=== PATIENT | female | born 1995 | race Caucasian/White ===

== ENCOUNTER 2016-09-26 16:35 | Emergency (ER) | payer BC, OTHER ==
[~2016-09-26] VITALS: Ht 167.6 cm; Wt 71.4 kg
[~2016-09-26 16:35] MED LIST: ETON1IMP2 IM; SNG10 PO
[2016-09-26 16:36] VITALS: TEMP 36.7; Ht 167.6 cm; Wt 71.4 kg
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
[2016-09-26] MEDS ORDERED: HYDROCODONE/ACETAMOPHEN 5/325MG TAB PO STA (16:50)
[2016-09-26] MEDS ORDERED: MONT1TAB3 PO (17:11)
--- NOTE | 2016-09-26 17:38 | DIAGNOSTIC IMAGING REPORT ---
RIGHT ELBOW MIN 3 VIEWS ROUTINE CLINICAL HISTORY: Right elbow pain status post trauma COMPARISON: None. DISCUSSION: The fat pads are not displaced. No fractures or dislocations are visualized. IMPRESSION: No fractures or dislocations identified. Electronically signed by: Andi Moore M.D. 09/26/2016 5:37 PM Dictated Date/Time: 09/26/2016 5:37 PM
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
--- NOTE | 2016-09-26 17:41 | DIAGNOSTIC IMAGING REPORT ---
LEFT KNEE 1 OR 2 VIEWS ROUTINE CLINICAL HISTORY: Left knee pain status post trauma COMPARISON: None. DISCUSSION: There is an age-indeterminate fracture of the proximal fibular tip. No additional fractures are visualized. There is no radiographic evidence of a joint effusion. There is no dislocation. IMPRESSION: Age-indeterminate fracture of the proximal fibular tip. Please correlate with the patient's site of pain Electronically signed by: Andi Moore M.D. 09/26/2016 5:40 PM Dictated Date/Time: 09/26/2016 5:39 PM
[2016-09-26] MEDS ORDERED: HYDR-5688 PO (18:12)
[2016-09-26 18:39] VITALS: BP 124/70; PULSE 84; O2SAT 99
== END 2016-09-26 18:39 | disposition home or self-care (01) ==
LOC: C.EDB 16:36 → C.EDD 18:39
DX: S82.832A Other fracture of upper and lower end of left fibula, initial encounter for closed fracture (principal); T14.8 Other injury of unspecified body region; S50.01XA Contusion of right elbow, initial encounter; V20.5XXA Motorcycle passenger injured in collision with pedestrian or animal in traffic accident, initial encounter

== ENCOUNTER → 2016-10-19 | Outpatient (CLI) | payer BC ==
[~2016-10-19] MED LIST changes: -ETON1IMP2 IM; +MONT1TAB3 PO; -SNG10 PO
== END | disposition home or self-care (01) ==
LOC: C.RDSM 12:30
PROVIDERS: ATTEND Physical Medicine & Rehabilitation Sports Medicine
DX: M25.562 Pain in left knee (principal)

== ENCOUNTER → 2016-11-20 | Outpatient (CLI) | payer BC ==
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
== END | disposition home or self-care (01) ==
LOC: C.MRI 14:33
PROVIDERS: ATTEND Physical Medicine & Rehabilitation Sports Medicine
DX: M25.562 Pain in left knee (principal); S80.02XA Contusion of left knee, initial encounter; X58.XXXA Exposure to other specified factors, initial encounter

== ENCOUNTER → 2017-03-12 | Outpatient (CLI) | payer BC ==
--- NOTE | 2017-03-12 11:18 | DIAGNOSTIC IMAGING REPORT ---
FLUOROSCOPICALLY GUIDED HIP ARTHROGRAM PRIOR TO MRI CLINICAL HISTORY: Right hip pain. FLUOROSCOPY TIME: 7 seconds. PROCEDURE: The procedure, risks and benefits were discussed with the patient. The patient agreed to the procedure and informed written consent was obtained. The procedure was performed by Dr. Quinones following a timeout. Skin overlying the right hip was prepped and draped in sterile fashion and local anesthesia was achieved with 1% lidocaine. Under intermittent fluoroscopic guidance, a 3 1/2 inch 22-gauge needle was directed into the right hip joint. Positioning within the joint space was confirmed with injection of a small amount of contrast. At this time, 7 cc of a mixture of 0.05 cc of gadolinium, 10 cc of normal saline and 10 cc of Optiray 320 was injected into the right hip joint. In addition, 40 mg of Depo-Medrol and 3 cc of 1% lidocaine was injected into the right hip joint as ordered. The needle was removed. The patient tolerated the procedure well and no immediate complications were evident. The patient was transported to MRI. IMPRESSION: 1. Fluoroscopically guided right hip arthrogram prior to MRI. 2. During this procedure, 40 mg of Depo-Medrol and 3 cc of 1% lidocaine was injected into the right hip joint, as requested. Electronically signed by: Jose Enrique Quinones M.D. 03/12/2017 11:17 AM Dictated Date/Time: 03/12/2017 11:14 AM
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
== END | disposition home or self-care (01) ==
LOC: C.MRIBC 09:33
PROVIDERS: ATTEND Physical Medicine & Rehabilitation Sports Medicine
DX: M25.551 Pain in right hip (principal)

== ENCOUNTER → 2017-05-06 | Day surgery (SDC) | payer BC ==
[2017-05-03 08:40] VITALS: Ht 167.6 cm; Wt 68.2 kg
[~2017-05-06] VITALS: Ht 167.6 cm; Wt 68.2 kg
[~2017-05-06] MED LIST changes: +ATROPINE SULFATE 0.1 MG/ML 5ML SYR IV PRN; +BUPIVACAINE 0.5 % 5 MG/1 ML MPF 30ML VIAL ONE; +BUPIVACAINE/EPINEPHRINE 0.5% MPF 1:200,000 30 ML VIAL ONE; +CEFAZOLIN 1000MG IV PUSH 7.5 ML IV SCH; +CEFAZOLIN SOD 1 GM VIAL ONE; +CHECK SCOPOLAMINE PATCH PLACEMENT SCH; +DEXAMETHASONE SOD INJ 4 MG/ML VIAL ONE; +EpHEDrine SULFATE 50MG/5ML SYR ONE; +EpHEDrine SULFATE INJ 50 MG/ML AMP IV PRN; +FENTANYL CITRATE INJ 50 MCG/1 ML 2 ML VIAL ONE; +GLYCOPYRROLATE INJ 0.2 MG/ML VIAL ONE; +HYDR-5688 PO; +HYDROmorphone INJ 1 MG/ML SYR IV PRN; +IBUP-1105 PO; +LACTATED RINGER'S 1000ML 1,000 ML IV SCH; +LIDOCAINE HCL 2% 2 ML VIAL (20MG/ML) ONE; +LIDOCAINE/EPINEPHRINE 1% 20 ML VIAL ONE; +LVNIS30 SQ; +MIDAZOLAM HCL 1 MG/ML 2ML VIAL ONE; +MULT-506 PO; +MoRPHine SULFATE 2 MG/ML CARP IV PRN; +MoRPHine SULFATE 4 MG/ML 1 ML CARP\\VIAL IV PRN; +NEOSTIGMINE METHYLSULFATE 5 MG/5 ML SYR ONE; +ONDANSETRON INJ 2 MG/ML 2 ML VIAL IV PRN; +ONDANSETRON INJ 2 MG/ML 2 ML VIAL ONE; +OXYCODONE/ACETAMINOPHEN 5-325 TAB PO PRN; +PROMETHAZINE HCL INJ 12.5 MG in SODIUM CHLORIDE 0.9% 50ML 50 ML IV PRN; +PROMETHAZINE HCL INJ 25 MG/ML 1 ML VIAL ONE; +PROPOFOL IV EMULSION 10 MG/ML 20 ML VIAL IV ONE; +ROCURONIUM BROMIDE 10 MG/ML 5 ML VIAL IV ONE; +SCOPOLAMINE 1.5 MG TDSY TD ONE; +SCOPOLAMINE 1.5 MG TDSY TD SCH; +SODIUM CHLORIDE 0.9% 1000ML 1,000 ML IV SCH
--- NOTE | 2017-05-06 10:10 | History & Physical Bridge Note ---
H&P Re-Evaluation Bridge Note: I have examined the patient, reviewed the History & Physical and in the interval since the performance of the History & Physical I have noted the following changes of clinical significance: No changes noted
--- NOTE | 2017-05-06 12:44 | [facility] Post Operative Brief Note ---
Immediate Operative Summary Operative Date May 06, 2017. Pre-Operative Diagnosis Right Hip Trochanteric Bursitis Post-Operative Diagnosis same as preop Procedure(s) Performed Right Hip Trochanteric Bursa Debridement And Iliotibial Band Lengthening Surgeon Dr. Allen Terrazzo Journeyman Surgeon(s) SOSA Mei/ Xin Ser, MS3 Estimated Blood Loss 5ML Findings Consistent with Post-Op Diagnosis Specimens A: Right hip greater trochanteric bursa Drains None Anesthesia Type General Complication(s) none Disposition Accompanied Pt To Recovery: no Disposition: Recovery Room / PACU
--- NOTE | 2017-05-06 13:06 | Medical Student: [facility] ---
Immediate Operative Summary Operative Date May 06, 2017. Pre-Operative Diagnosis Right trochanteric bursitis Post-Operative Diagnosis Right trochanteric bursitis Procedure(s) Performed Debridement of the right greater trochanteric bursa and lengthening of the IT band Surgeon Dr. Allen Portable Pinch Riveter Surgeon(s) Emmanuelle Carrera PA-C and Xin Rowley MS3 Estimated Blood Loss 5cc Findings Right iliotibial band - normal appearing but very tight Inflamed bursa Specimens Right greater trochanteric bursa Drains None Anesthesia General Complication(s) None Disposition Recovery Room / PACU
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
--- NOTE | 2017-05-06 13:14 | Discharge Instructions-SurgCtr ---
Discharge Instructions Date of Service May 06, 2017. Visit Reason for Visit: Right Hip Trochanteric Bursitis Discharge Discharge Diagnosis / Problem: Right hip trochanteric bursitis Discharge Goals Goal(s): Decrease discomfort, Improve function, Increase independence Activity Recommendations Activity Limitations: per Instructions/Follow-up section Weightbearing Status: Right weightbearing (as tolerated) Anesthesia . Post Anesthesia Instructions: If you have had General Anesthesia or IV Sedation: * Do not drive today. * Resume driving when surgeon permits. * Do not make important decisions or sign legal documents today. * Call surgeon for: 1. Temperature elevations greater than 101 degrees F. 2. Uncontrollable pain. 3. Excessive bleeding. 4. Persistent nausea and vomiting. 5. Medication intolerance (nausea, vomiting or rash). * For nausea and vomiting use only clear liquids such as: tea, soda, bouillon until nausea subsides, then gradually increase diet as tolerated. * If you have any concerns or questions, call your surgeon's office. If physician is unavailable and it is an emergency, call 911 or go to the nearest emergency room. . Instructions / Follow-Up Instructions / Follow-Up DIET: * Resume previous diet. MEDICATIONS: * Please take your prescriptions as instructed at your pre-op appointment and/ or see medication discharge instructions listed above. * Take Washington 5/325mg 1-2 tabs by mouth every 4-6 hours as needed for pain. * Take Lovenox 60 mg subcutaneously twice daily x 1 month after surgery. Start taking on 05/07/17 at 7 or 8 AM. Take the next injection 12 hours after the first injection. * If concerns develop, call your physician's office at . SPECIAL CARE INSTRUCTIONS: * Ice to right hip as needed for pain/swelling. * Elevate right hip as needed for pain/swelling. * Keep dressing clean, dry, intact until your therapy appointment on Wednesday. * Do not get incision/dressings wet until after dressings come off on Wednesday. * You may weight bear as tolerated, use crutches to assist with ambulation. * You may do range of motion of your right hip, knee and ankle as tolerated. * Wear your SAMY stockings daily, may remove at night for comfort. * Your surgical extremity may be discolored due to prepping agents used on the skin. A bluish-green tint is a normal variant and should not cause alarm. Call your doctor at [phone] if: * Temperature above 101 degrees * Pain not relieved by pain medicine ordered * There is increased drainage or redness from any incision * You have any unanswered questions, problems or concerns. FOLLOW UP VISIT: * If not already scheduled, please call the office at to schedule a follow-up appointment. * You have a physical therapy appointment on 05/10/17 at 8:00 a.m. * You have a follow up appointment with Dr. Allen on 05/17/17 at 1:00 p.m. Diet Recommendations Home Diet: no limitations, resume previous diet Procedures Procedures Performed: Right Hip Trochanteric Bursa Debridement And Iliotibial Band Lengthening Pending Studies Studies pending at discharge: no Medical Emergencies . Who to Call and When: Medical Emergencies: If at any time you feel your situation is an emergency, please call 911 immediately. . Non-Emergent Contact Non-Emergency issues call your: Surgeon Call Non-Emergent contact if: temperature is above 101, your pain is not controlled, your pain is worsening, wound has increased drainage, wound has increased redness, wound has increased pain, you have any medication questions . . "Provider Documentation" section prepared by Emmanuelle Carrera. . [place] Drug Monitoring Program Search Results: patient reviewed within database, no issues identified
[2017-05-06] MEDS: FENTANYL CITRATE INJ 50 MCG/1 ML 2 ML VIAL IV PRN ×4 (13:18→13:54)
--- NOTE | 2017-05-06 13:18 | [facility] Operative Report ---
Operative Report Operative Date May 06, 2017. Pre-Operative Diagnosis Right Hip Trochanteric Bursitis Post-Operative Diagnosis same as preop Procedure(s) Performed Right Hip Trochanteric Bursa Debridement And Iliotibial Band Lengthening Surgeon Dr. Allen Environmental Marketer Surgeon(s) SOSA Mei/ Xin Ser, MS3 Estimated Blood Loss 5ML Specimens A: Right hip greater trochanteric bursa Drains None Anesthesia Type General Complication(s) none Disposition no Recovery Room / PACU Indications Patient is a 21 year old female s/p injury to right hip approximately 1 year ago. She has failed conservative treatment which has consisted of corticosteroid injections. X-rays and MR arthrogram were normal. Due to failure of conservative treatment, surgical intervention recommended. Risks/ complications discussed, informed consent obtained. Description of Procedure Patient was taken to the operating room, placed under general anesthesia. She was given 2gm IV Ancef for surgical prophylaxis. Time out performed, prepped and draped in routine sterile fashion. I was present during the entire case, please see Dr. Allen's operative report for further detail. Patient was awakened and taken to the recovery room in stable condition. I attest to the content of the Intraoperative Record and any orders documented therein. Any exceptions are noted below.
[2017-05-06 14:38] VITALS: TEMP 36.2
[2017-05-06] MEDS: OXYCODONE/ACETAMINOPHEN 5-325 TAB PO PRN ×2 (14:54→15:28)
--- NOTE | 2017-05-06 15:00 | Anesthesia Progress Nt - [facility] ---
Anesthesia Post Op Note Date & Time May 06, 2017 at 15:00 Vital Signs Vital Signs Past 12 Hours Date Time Temp Pulse Resp B/P (MAP) Pulse Ox O2 Delivery O2 Flow Rate FiO2 05/06/17 14:38 36.2 82 16 111/72 (85) 100 Room Air 05/06/17 14:32 82 23 99 05/06/17 14:32 82 23 99 05/06/17 14:32 83 23 05/06/17 14:32 83 23 05/06/17 14:31 116/71 05/06/17 14:31 116/71 05/06/17 14:27 72 18 05/06/17 14:27 71 18 97 05/06/17 14:27 71 18 97 05/06/17 14:27 72 18 05/06/17 14:26 109/70 05/06/17 14:26 109/70 05/06/17 14:22 86 19 99 05/06/17 14:22 86 19 99 05/06/17 14:22 83 19 05/06/17 14:22 83 19 05/06/17 14:21 77 16 112/74 99 05/06/17 14:21 78 16 05/06/17 14:18 36.5 72 20 112/74 98 Room Air 05/06/17 14:16 75 23 05/06/17 14:16 76 23 112/74 98 05/06/17 14:11 66 21 109/64 100 05/06/17 14:11 63 21 05/06/17 14:06 69 23 110/66 100 05/06/17 14:06 69 23 05/06/17 14:01 60 18 05/06/17 14:01 62 18 111/68 100 05/06/17 13:56 68 17 109/67 100 05/06/17 13:56 66 17 05/06/17 13:51 63 10 05/06/17 13:51 64 10 111/71 100 05/06/17 13:46 70 18 05/06/17 13:46 69 18 113/64 99 05/06/17 13:41 64 10 113/67 99 05/06/17 13:41 64 10 05/06/17 13:36 68 15 05/06/17 13:36 69 15 118/69 100 05/06/17 13:31 68 20 05/06/17 13:31 70 20 115/71 100 05/06/17 13:26 67 27 116/77 99 05/06/17 13:26 70 27 05/06/17 13:21 71 21 118/74 100 05/06/17 13:21 72 21 05/06/17 13:16 77 27 05/06/17 13:16 79 27 122/73 100 05/06/17 13:11 71 16 121/70 100 05/06/17 13:11 72 16 05/06/17 13:07 128/76 05/06/17 13:06 36.9 80 20 128/76 100 Mask 6 05/06/17 09:52 36.7 61 16 121/80 (94) 97 Room Air Notes Mental Status: alert / awake / arousable, participated in evaluation Pt Amnestic to Procedure: Yes Nausea / Vomiting: adequately controlled Pain: adequately controlled Airway Patency, RR, SpO2: stable & adequate BP & HR: stable & adequate Hydration State: stable & adequate Anesthetic Complications: no major complications apparent
[2017-05-06 15:18] VITALS: BP 113/72; PULSE 80; O2SAT 100
== END | disposition home or self-care (01) ==
LOC: X.SURG 09:36
PROVIDERS: ATTEND Physical Medicine & Rehabilitation Sports Medicine
DX: M70.61 Trochanteric bursitis, right hip (principal); Z88.0 Allergy status to penicillin; Z88.2 Allergy status to sulfonamides; Z86.718 Personal history of other venous thrombosis and embolism

== ENCOUNTER → 2017-08-09 | Day surgery (SDC) | payer BC ==
[2017-07-29 07:17] VITALS: Ht 167.6 cm; Wt 68.2 kg
[~2017-08-09] VITALS: Ht 167.6 cm; Wt 68.2 kg
[~2017-08-09] MED LIST changes: -ATROPINE SULFATE 0.1 MG/ML 5ML SYR IV PRN; +BUPIVACAINE 0.25% 2.5MG/ML PF 10 ML VIAL ONE; -BUPIVACAINE 0.5 % 5 MG/1 ML MPF 30ML VIAL ONE; -BUPIVACAINE/EPINEPHRINE 0.5% MPF 1:200,000 30 ML VIAL ONE; -CEFAZOLIN 1000MG IV PUSH 7.5 ML IV SCH; -CEFAZOLIN SOD 1 GM VIAL ONE; -CHECK SCOPOLAMINE PATCH PLACEMENT SCH; -DEXAMETHASONE SOD INJ 4 MG/ML VIAL ONE; -EpHEDrine SULFATE 50MG/5ML SYR ONE; -EpHEDrine SULFATE INJ 50 MG/ML AMP IV PRN; -FENTANYL CITRATE INJ 50 MCG/1 ML 2 ML VIAL ONE; -GLYCOPYRROLATE INJ 0.2 MG/ML VIAL ONE; -HYDR-5688 PO; -HYDROmorphone INJ 1 MG/ML SYR IV PRN; +IBUP-1050 PO; -IBUP-1105 PO; +IOPAMIDOL INJ 61% 15 ML VIAL ONE; -LACTATED RINGER'S 1000ML 1,000 ML IV SCH; +LIDOCAINE HCL 1% MPF 5 ML VIAL ONE; -LIDOCAINE HCL 2% 2 ML VIAL (20MG/ML) ONE; -LIDOCAINE/EPINEPHRINE 1% 20 ML VIAL ONE; -LVNIS30 SQ; -MIDAZOLAM HCL 1 MG/ML 2ML VIAL ONE; -MoRPHine SULFATE 2 MG/ML CARP IV PRN; -MoRPHine SULFATE 4 MG/ML 1 ML CARP\\VIAL IV PRN; -NEOSTIGMINE METHYLSULFATE 5 MG/5 ML SYR ONE; -ONDANSETRON INJ 2 MG/ML 2 ML VIAL IV PRN; -ONDANSETRON INJ 2 MG/ML 2 ML VIAL ONE; -OXYCODONE/ACETAMINOPHEN 5-325 TAB PO PRN; -PROMETHAZINE HCL INJ 12.5 MG in SODIUM CHLORIDE 0.9% 50ML 50 ML IV PRN; -PROMETHAZINE HCL INJ 25 MG/ML 1 ML VIAL ONE; -PROPOFOL IV EMULSION 10 MG/ML 20 ML VIAL IV ONE; -ROCURONIUM BROMIDE 10 MG/ML 5 ML VIAL IV ONE; -SCOPOLAMINE 1.5 MG TDSY TD ONE; -SCOPOLAMINE 1.5 MG TDSY TD SCH; -SODIUM CHLORIDE 0.9% 1000ML 1,000 ML IV SCH
--- NOTE | 2017-08-09 14:49 | [facility] Post Operative Brief Note ---
Immediate Operative Summary Operative Date August 09, 2017. Pre-Operative Diagnosis Right sacroiliitis versus right S1 radiculopathy Post-Operative Diagnosis same Procedure(s) Performed Right Sacroiliac Joint Injection Surgeon Dr Dirk Cross Assistant Oceanographer Surgeon(s) None Estimated Blood Loss 0 Findings Consistent with Post-Op Diagnosis Specimens NA Drains None Anesthesia Type Local Complication(s) none Disposition Disposition:
--- NOTE | 2017-08-09 14:50 | Discharge Instructions ---
Discharge Instructions Date of Service August 09, 2017. Visit Reason for Visit: Sacroiliitis Discharge Discharge Diagnosis / Problem: low back pain Discharge Goals Goal(s): Decrease discomfort, Improve function Activity Recommendations Activity Limitations: resume your previous activity Anesthesia . Post Anesthesia Instructions: If you have had General Anesthesia or IV Sedation: * Do not drive today. * Resume driving when surgeon permits. * Do not make important decisions or sign legal documents today. * Call surgeon for: 1. Temperature elevations greater than 101 degrees F. 2. Uncontrollable pain. 3. Excessive bleeding. 4. Persistent nausea and vomiting. 5. Medication intolerance (nausea, vomiting or rash). * For nausea and vomiting use only clear liquids such as: tea, soda, bouillon until nausea subsides, then gradually increase diet as tolerated. * If you have any concerns or questions, call your surgeon's office. If physician is unavailable and it is an emergency, call 911 or go to the nearest emergency room. . Diet Recommendations Recommended Home Diet: resume previous diet Procedures Procedures Performed: Right Sacroiliac Joint Injection Pending Studies Studies pending at discharge: no Medical Emergencies . Who to Call and When: Medical Emergencies: If at any time you feel your situation is an emergency, please call 911 immediately. . Non-Emergent Contact Non-Emergency issues call your: Specialist . . "Provider Documentation" section prepared by Dirk Cross. .
[2017-08-09 15:13] VITALS: BP 110/54; PULSE 83; O2SAT 98
--- NOTE | 2017-08-09 16:21 | OPERATIVE REPORT ---
DATE OF OPERATION: 08/09/2017 PREOPERATIVE DIAGNOSIS: Right sacroiliitis. POSTOPERATIVE DIAGNOSIS: Right sacroiliitis. PROCEDURE: Right sacroiliac joint injection under fluoroscopic guidance. INDICATIONS: The patient is a 22-year-old white female who was evaluated for right SI joint injection. She has pain that is consistent with a right SI joint. There was still a question whether it is an S1 radiculopathy, although she does not have significant pain that radiates below the knee. PHYSICAL EXAMINATION: GENERAL: Pleasant female, seated comfortably. MUSCULOSKELETAL: She has tenderness to palpation of the SI joint, worse with extension. Positive Janes maneuver, positive distraction maneuver, and positive sacral compression maneuver. Normal motor strength. Negative seated straight leg raises. CONSENT: Verbal and written consent was obtained from the patient. Risks and benefits were reviewed. Risks include but are not limited to epidural abscess and allergic reaction. The patient wishes to proceed. DESCRIPTION OF PROCEDURE: The patient was taken back to the special procedures room of [facility]. She was maintained in a prone position. Backside was cleansed with Betadine x3 and a dry sterile dressing was applied. Fluoroscope was used to identify the right SI joint and the overlying skin was anesthetized with 4 mL of lidocaine 1% with a 25 gauge 1.5-inch needle. A 25 gauge 3.5 inch spinal needle was then directed under fluoroscopic guidance into the joint. It was injected with Isovue contrast, noted to be too far laterally. It was repositioned more medially and within the joint. It was uncomfortable and injected with Isovue 300 to confirm and then it was injected with 0.25 mL of the Isovue 300 and then it was injected with 40 mg of Depo-Medrol and 1.5 mL of bupivacaine 0.25%. Injection was well tolerated. DISPOSITION: 1. The patient is taken out into the discharge recovery area and discharged home once discharge criteria are met. 2. Follow up in the [facility] office in 4 months' time. I attest to the content of the Intraoperative Record and any orders documented therein. Any exceptions are noted below. MTDD
== END | disposition home or self-care (01) ==
LOC: X.SURG 13:49
PROVIDERS: ATTEND Physical Medicine & Rehabilitation
DX: M46.1 Sacroiliitis, not elsewhere classified (principal)